=== PATIENT | female | born 1945 | race Caucasian/White ===

== ENCOUNTER → 2018-01-13 | Outpatient (CLI) | payer MEDICARE, BC | END | disposition home or self-care (01) | LOC: KCIC CT 10:19 | DX: R51 Headache (principal) | CPT/HCPCS: 70450 ==

== ENCOUNTER → 2018-04-14 | Outpatient (CLI) | payer MEDICARE, BC ==
--- NOTE | 2018-04-14 12:07 | CARD ---
MR#: [id number] Date of Study: 04/14/2018 Ordering Physician: JUAN CANDELARIO, Referring Physician: JUAN CANDELARIO Tech: Eve Carrillo RDCS APPROVED REPORT EXAM: Two-dimensional and M-mode echocardiogram with Doppler and color Doppler. Other Information Quality : Fair INDICATION Dyspnea on Exertion RISK FACTORS Obesity 2D DIMENSIONS RVDd2.8 (2.9-3.5cm)Left Atrium(2D)4.8 (1.6-4.0cm) IVSd1.0 (0.7-1.1cm)Aortic Root(2D)3.5 (2.0-3.7cm) LVDd6.5 (3.9-5.9cm)LVOT Diameter2.2 (1.8-2.4cm) PWd0.9 (0.7-1.1cm)LVDs4.7 (2.5-4.0cm) FS (%) 27.0 %SV110.5 ml LVEF(%)51.6 (>50%) Aortic Valve AoV Peak Pato.145.0cm/sAoV VTI29.5cm AO Peak GR.8.4mmHgLVOT Peak Pato.114.2cm/s AO Mean GR.4mmHgAVA (VMAX)3.10cm2 FAYE (VTI)3.70cm2 Mitral Valve MV E Liboslcn17.3cm/sMV DECEL UGCX462hb MV A Bvvtwdin53.5cm/sE/A Ratio0.9 Tricuspid Valve TR P. Gizndcpx881gc/sRAP CLFRHFAZ5laHb TR Peak Gr.27pePlFXXU58rrVy Pulmonary Vein S1 Pycnwxdg08.3cm/sD2 Ppiiujex11.6cm/s LEFT VENTRICLE The left ventricle is normal size. There is normal left ventricular wall thickness. Left ventricle sy stolic function is normal. The Ejection Fraction is 55-60%. There is normal LV segmental wall motion. Transmitral Doppler flow pattern is Grade I-abnormal relaxation pattern. RIGHT VENTRICLE The right ventricle is normal size. The right ventricular systolic function is normal. ATRIA The left atrium size is normal. The right atrium size is normal. The interatrial septum is intact wit h no evidence for an atrial septal defect or patent foramen ovale as noted on 2-D or Doppler imaging. AORTIC VALVE The aortic valve is calcified but opens well. Doppler and Color Flow revealed no significant aortic r egurgitation. There is no significant aortic valvular stenosis. MITRAL VALVE The mitral valve is calcified but opens well. There is no evidence of mitral valve prolapse. There is no mitral valve stenosis. Doppler and Color-flow revealed trace mitral regurgitation. TRICUSPID VALVE The tricuspid valve is normal in structure and function. Doppler and Color Flow revealed mild tricusp id regurgitation. The PA pressure was estimated at 42 mmHg. There is no tricuspid valve stenosis. PULMONIC VALVE The pulmonic valve is not well visualized. Doppler and Color Flow revealed trace to mild pulmonic patricia vular regurgitation. There is no pulmonic valvular stenosis. GREAT VESSELS The aortic root is normal in size. The ascending aorta is normal in size. The IVC is normal in size a nd collapses >50% with inspiration. PERICARDIAL EFFUSION There is no evidence of significant pericardial effusion. Critical Notification Critical Value: No <Conclusion> The left ventricle is normal size. Left ventricle systolic function is normal. The Ejection Fraction is 55-60%. There is no significant aortic valvular stenosis. Doppler and Color Flow revealed no significant aortic regurgitation. Doppler and Color-flow revealed trace mitral regurgitation. Doppler and Color Flow revealed mild tricuspid regurgitation. The PA pressure was estimated at 42 mmHg. Signed by : Roland Robles MD Electronically Approved : 04/14/2018 12:06:16
== END | disposition home or self-care (01) ==
LOC: ECHO 09:49
PROVIDERS: ATTEND Internal Medicine Cardiovascular Disease
DX: I08.1 Rheumatic disorders of both mitral and tricuspid valves (principal); E66.9 Obesity, unspecified
CPT/HCPCS: 93306; 96374

== ENCOUNTER → 2018-05-19 | Outpatient (CLI) | payer MEDICARE, BC ==
--- NOTE | 2018-05-19 12:20 | RAD ---
MR#: [id number] Date of Study: 05/19/2018 Ordering Physician: JUAN CANDELARIO, Referring Physician: JUAN CANDELARIO, Tech: TERELL Luke, RDMS, RTR APPROVED REPORT Bilateral Lower Extremity Venous Study for DVT Patient Location: OUT-PATIENT Indications post ablation Findings Mildly technically difficult study. Grayscale images of the common femoral, superficial and popliteal veins bilaterally demonstrate compressibility and normal spectral waveforms and color Doppler flow. The bilateral greater saphenous veins appear to be noncompressible consistent with recent ablation hi story. Below the knees there is spontaneous flow noted without any obvious evidence of thrombus. Critical Notification Critical Value: No <Conclusion> No evidence of DVT in the bilateral lower extremities with successful bilateral greater saphenous vei n ablations. Signed by : Rd Molina, Electronically Approved : 05/19/2018 12:19:23
== END | disposition home or self-care (01) ==
LOC: US 12:20
PROVIDERS: ATTEND Internal Medicine Cardiovascular Disease
DX: I87.2 Venous insufficiency (chronic) (peripheral) (principal)
CPT/HCPCS: 93970

== ENCOUNTER → 2018-06-01 | Outpatient (CLI) | payer MEDICARE, BC ==
--- NOTE | 2018-06-01 14:24 | CARD ---
MR#: [id number] Date of Study: 06/01/2018 Ordering Physician: JUAN MONTANA, Referring Physician: JUAN MONTANA, Tech: Millicent Parra RVT; Kirk Redmond LP APPROVED REPORT Patient StatusOUT-PATIENT Factory Worker: Millicent Parra RVT; Kirk Redmond LP Procedure(s) performed: Endovenous Venaseal ablation of the left lesser saphenous vein INDICATION FOR PROCEDURE The indication(s) include : Symptomatic Chronic Venous Insufficiency with Varicose Veins, lower extre mity pain and edema. PROCEDURE NARRATIVE After explaining the risks, benefits and alternative options, informed consent was obtained from saroj ent. Patient was brought to the procedure suite and duplex ultrasound was used to map out the insuffi cient saphenous vein. The access site was determined and marked on the overlying skin. The depth and diameter of the vein (s) to be treated was documented. The patient was placed prone on the procedure table and the leg was prepped and draped using sterile technique. Ultrasound guidance was again used to localize the access site. 1% lidocaine was injected into the sk in and subcutaneous tissues for local anesthesia. Using ultrasound guidance, access was obtained in t he saphenous vein with a 19-gauge thin-walled needle followed by introduction of a short guidewire. T he intraluminal location was confirmed with ultrasound and a 7 Latvian 7 cm sheath was inserted into t he vein. A 0.035 inch guidewire from the Venaseal kit was then introduced and positioned at the saphe nofemoral junction using ultrasound guidance. The 80 cm 7 Latvian introducer sheath/dilator was positi oned 5 cm from the saphenofemoral junction. The guidewire and dilator were removed and the remaining sheath was flushed with sterile saline, with the syringe remaining in place prior to the next steps. The Cyanoacrylate adhesive was loaded into a 3 cc syringe that was then attached to the 5F delivery c athter and loaded on to the Dispenser gun.The catheter was primed precisely and this 'assembly' was i ntroduced through the 7 Latvian sheath and positioned 5 cm caudal to the saphenopopliteal junction und er ultrasound guidance. While applying compression cephalad to the cathter tip with the ultrasound tr ansducer, 0.10 cc of the VenaSeal adhesive was delivered into the vein by pulling the trigger of the dispenser gun. The catheter was pulled back 1 cm and another 0.10 cc of the adhesive was delivered fo llowing which the catheter was pulled back 3 cm. Compression was applied over the vein for 3 minutes. The catheter tip position was confirmed again using the ultrasound, 0.10 cc Venaseal adhesive delive red, catheter pulled back 3 cm and compression applied for 30 seconds. These steps were repeated to treat the entire length of the incompetent vein. Following the last injection and compression sequence, the catheter and introducer sheath were pulled out from the access site. Hemostasis was achieved with manual compression and an adhesive bandage wa s applied to the incision. Ultrasound confirmed complete coaptation and closure of the treated segmen ts of the greater saphenous vein. Treatment time was approximately 7 minutes and the vein length carter brady was 25 cm. The drapes were removed and the patient cleaned and prepared for discharge. Patient tolerated the pro cedure well. There were no immediate complications. Postop ultrasound check scheduled for 48-72 hours and the patient was given written postop instructions. Signed by : Juan Montana, Electronically Approved : 06/01/2018 14:22:58
== END | disposition home or self-care (01) ==
LOC: VNUS 12:20
PROVIDERS: ATTEND Internal Medicine Cardiovascular Disease
DX: I83.812 Varicose veins of left lower extremity with pain (principal); I87.2 Venous insufficiency (chronic) (peripheral); Z88.0 Allergy status to penicillin
CPT/HCPCS: 36482

== ENCOUNTER → 2018-10-05 | Outpatient (CLI) | payer MEDICARE ==
[~2018-10-05] MED LIST: ALPR0.5T PO; ESCITALOPRAM OXA5 MG PO; FURO-69 PO; IOHEXOL 240 MG/ML 50ML VIAL. PO ONE; IOHEXOL 300 MG/ML 100ML VIAL. IV ONE; METO-239 PO; SIMV10TA3 PO
--- NOTE | 2018-10-05 13:43 | KCIC ---
PQRS Compliance statement: One or more of the following individualized dose reduction techniques were utilized for this examination: 1. Automated exposure control. 2. Adjustment of the mA and/or kV according to patient size. 3. Use of iterative reconstruction technique. Indication:Gross hematuria. Cirrhosis. Right flank pain. TECHNIQUE: CT abdomen and pelvis with IV contrast with multiplanar reformats. COMPARISON: None FINDINGS: Heart is normal in size. No pericardial or pleural effusion. Clear lung bases. Nodular surface of the liver is seen. Spleen is mildly enlarged measuring 17 cm without focal lesion. Main portal vein is patent. Status post cholecystectomy. Pancreas and adrenal glands demonstrate no nodularity. 7 mm obstructing stone is seen in the right proximal ureter causing moderate hydronephrosis. Punctate nonobstructing stone is seen in the right kidney. Most likely a subcentimeter simple cyst in the inferior pole of the right kidney. No enlarged retroperitoneal or pelvic adenopathy. No free pelvic fluid or ascites. No bowel obstruction. Sigmoid diverticulosis. Anteverted uterus. Urinary bladder is within normal limits. No pneumoperitoneum. No suspicious bony lesion. IMPRESSION: 1. Obstructing stone in the proximal right ureter. 2. Cirrhosis the portal venous hypertension. Electronically signed by: Dat Morales DO (10/05/2018 1:40 PM) [facility]
== END | disposition home or self-care (01) ==
LOC: KCIC CT 10:34
PROVIDERS: ATTEND Nurse Practitioner Family
DX: N20.0 Calculus of kidney (principal); K74.69 Other cirrhosis of liver; K76.6 Portal hypertension; K57.30 Diverticulosis of large intestine without perforation or abscess without bleeding; R16.1 Splenomegaly, not elsewhere classified; N13.39 Other hydronephrosis; I10 Essential (primary) hypertension; Z90.49 Acquired absence of other specified parts of digestive tract
CPT/HCPCS: 74177; 82565; Q9966; Q9967

== ENCOUNTER 2018-10-19 14:26 | Inpatient (IN) | payer MEDICARE ==
[~2018-10-19] VITALS: Ht 162.6 cm; Wt 128.1 kg
[~2018-10-19 14:26] MED LIST changes: -IOHEXOL 240 MG/ML 50ML VIAL. PO ONE; -IOHEXOL 300 MG/ML 100ML VIAL. IV ONE
[2018-10-19] MEDS ORDERED: LABETALOL 20 MG/4 ML DISP.SYRIN. IVP ONE (15:00)
[2018-10-19] MEDS ORDERED: ONDANSETRON PF 4 MG/2 ML VIAL. IV ONE ×2 (15:00→16:30)
[2018-10-19] MEDS ORDERED: fentaNYL PF VIAL 100 MCG/2 ML VIAL IV ONE (15:00)
[2018-10-19] MEDS ORDERED: cloNIDine HCL 0.1 MG TABLET PO ONE (15:00)
[2018-10-19] MEDS ORDERED: IV NORMAL SALINE 1000ML BAG 1,000 ML IV ONE (15:00)
[2018-10-19 15:35] LABS: BILIRUBIN,URINE NEGATIVE (NEG); COLOR,URINE YELLOW; NITRITE,URINE NEGATIVE (NEG); PROTEIN,URINE NEGATIVE (NEG-TRACE)
[2018-10-19 15:39] LABS: BASO # 0.1 x10^3/uL (0.0-0.2); BASO % 1 % (0-3); EOS # 0.4 x10^3/uL (0.0-0.7); EOS % 7 % (0-3); HEMATOCRIT 37.5 % (36.0-47.0); HEMOGLOBIN 12.1 g/dL (12.0-15.5); LYMPH # 1.2 x10^3/uL (1.0-4.8); LYMPH % 22 % (24-48); MEAN CORPUSCULAR HEMOGLOBIN 25 pg (25-35); MEAN CORPUSCULAR HGB CONC 32 g/dL (31-37); MEAN CORPUSCULAR VOLUME 78 fL (79-100); MONO # 0.6 x10^3/uL (0.0-1.1); MONO % 11 % (0-9); NEUT # 3.3 x10^3uL (1.8-7.7); NEUT % 59 % (31-73); PLATELET COUNT 120 x10^3/uL (140-400); RED BLOOD COUNT 4.81 x10^6/uL (3.50-5.40); RED CELL DISTRIBUTION WIDTH 17.5 % (11.5-14.5); WHITE BLOOD COUNT 5.6 x10^3/uL (4.0-11.0)
[2018-10-19 15:43] LABS: CLARITY,URINE CLOUDY
[2018-10-19 15:50] LABS: PROTHROMBIN TIME PATIENT 14.8 SEC (11.7-14.0)
[2018-10-19 15:50] LABS: BACTERIA,URINE 0 /HPF (0-FEW); RBC,URINE TNTC /HPF (0-2); SQUAMOUS EPITHELIAL CELL,UR FEW /LPF; WBC,URINE OCC /HPF (0-4)
[2018-10-19 16:00] LABS: CALCIUM 10.2 mg/dL (8.5-10.1); GFR 54.7; POTASSIUM 4.2 mmol/L (3.5-5.1)
--- NOTE | 2018-10-19 16:01 | RAD ---
CT ABDOMEN PELVIS WO CONTRAST Indication: right flank pain hx of kidney stones
previous Exposure: One or more of the following individualized dose reduction techniques were utilized for this examination: 1. Automated exposure control 2. Adjustment of the mA and/or kV according to patient size 3. Use of iterative reconstruction technique. Comparison: October 05, 2018. Technique: No intravenous contrast given. No oral contrast per request. Findings: Evaluation of solid viscera, bowel and vasculature is compromised by the noncontrast technique. Mild atelectasis or infiltrate in the lung bases. Coronary artery calcification. The liver demonstrates a nodular surface morphology, as was seen previously. Spleen is again enlarged, measuring about 17 cm. Pancreas unremarkable. No evidence of adrenal mass. Moderate right hydronephrosis and proximal ureteric dilatation, with a obstructing calculus in the proximal right ureter which measures 1 cm long axis. This appears similar as prior study although the stone measures slightly larger, compared with 7 mm previously. Possibly this is due to slight rotation of a calculus. There is dilatation of the ureter distal to this calculus is well, with another calculus in the distal ureter measuring 5 mm also seen on prior study. Tiny nonobstructing intrarenal calculus on the right and on the left. No left-sided hydronephrosis. Tiny subcentimeter hypodense lesion lower pole right kidney appears stable, too small to characterize but may represent a cyst. Gallbladder is surgically absent. Aorta is tortuous with mild calcification, no evidence of aneurysm. No evidence of significant lymph node enlargement. No evidence of bowel obstruction. Colonic diverticulosis without evidence of acute colitis. There may be very mild free pelvic fluid. Urinary bladder is not adequately distended for evaluation. Small fat-containing umbilical hernia at the anterior abdominal wall. Degenerative spondylosis of the spine IMPRESSION: 1. Moderately obstructive calculi in the proximal and distal right ureter, are again seen. The proximal ureteric calculus measures slightly larger but that may just be due to technical difference. Right hydronephrosis appears similar. 2. Splenomegaly and cirrhotic liver morphology is again seen. 3. There may be very mild free pelvic fluid. Electronically signed by: Eliseo Caba MD (10/19/2018 3:58 PM) [facility]
[2018-10-19 16:05] LABS: ALBUMIN 3.1 g/dL (3.4-5.0); ALBUMIN/GLOBULIN RATIO 0.7 (1.0-1.7); MAGNESIUM 2.1 mg/dL (1.8-2.4); TOTAL BILIRUBIN 0.9 mg/dL (0.2-1.0); TOTAL PROTEIN 7.4 g/dL (6.4-8.2)
[2018-10-19 16:14] LABS: CREATINE KINASE 52 U/L (26-192)
[2018-10-19] MEDS ORDERED: KETOROLAC 30 MG/ML VIAL. IV ONE (16:30)
--- NOTE | 2018-10-19 16:36 | PHYS DOC ---
Past Medical History Past Medical History: Hypertension, RI Additional Past Medical Histor: Stage 4 non-ETOH Cirrohsis, GERD Past Surgical History: Cholecystectomy, Knee Replacement Additional Past Surgical Histo: Right Knee 2006, Additional Information: 1993 quit Alcohol Use: None Drug Use: None Adult General Chief Complaint Chief Complaint: FLANK PAIN [facility] HPI Patient is a 73 year old female presented to the ER FOR EVALUATION OF RIGHT FLANK PAIN. Patient has had flank pain for more than 3 weeks[address] Patient had a CT scan done two weeks ago, found to have kidney stones on left ureter. Patient continues to have pain despite of taking medication at home. Patient denied any fever. No nausea or vomiting. Review of Systems Review of Systems Constitutional: Denies fever or chills [] Eyes: Denies change in visual acuity, redness, or eye pain [] HENT: Denies nasal congestion or sore throat [] Respiratory: Denies cough or shortness of breath [] Cardiovascular: No additional information not addressed in HPI [] GI: Positive for abdominal pain NO nausea, vomiting, bloody stools or diarrhea [] : Denies dysuria or hematuria [] Musculoskeletal: Denies back pain or joint pain [] Integument: Denies rash or skin lesions [] Neurologic: Denies headache, focal weakness or sensory changes [] Endocrine: Denies polyuria or polydipsia [] All other systems were reviewed and found to be within normal limits, except as documented in this note. Current Medications Current Medications Current Medications Medications (Trade) Dose Ordered Sig/Susanna Start Time Stop Time Status Last Admin Dose Admin Clonidine HCl (Catapres) 0.1 mg 1X ONCE 10/19/18 15:00 10/19/18 15:01 UNV Fentanyl Citrate (Fentanyl 2ml Vial) 50 mcg 1X ONCE 10/19/18 15:00 10/19/18 15:01 UNV Ketorolac Tromethamine (Toradol 30mg Vial) 30 mg 1X ONCE 10/19/18 16:30 10/19/18 16:31 DC 10/19/18 17:05 30 MG Labetalol HCl (Normodyne Iv Push) 10 mg 1X ONCE 10/19/18 15:00 10/19/18 15:01 UNV Ondansetron HCl (Zofran) 4 mg 1X ONCE 10/19/18 16:30 10/19/18 16:31 DC 10/19/18 17:04 4 MG Sodium Chloride 1,000 ml @ 1,000 mls/hr 1X ONCE 10/19/18 15:00 10/19/18 15:59 UNV Allergies Allergies Allergies Coded Allergies Type Severity Reaction Last Updated Verified Penicillins Allergy Intermediate 04/21/18 Yes Physical Exam Physical Exam Constitutional: Well developed, well nourished, no acute distress, non-toxic appearance. [] HENT: Normocephalic, atraumatic, bilateral external ears normal, oropharynx moist, no oral exudates, nose normal. [] Eyes: PERRLA, EOMI, conjunctiva normal, no discharge. [] Neck: Normal range of motion, no tenderness, supple, no stridor. [] Cardiovascular:Heart rate regular rhythm, no murmur [] Lungs & Thorax: Bilateral breath sounds clear to auscultation [] Abdomen: Bowel sounds normal, soft, right CVA tenderness, RIGHT LOWER QUADRANT ABDOMEN, no masses, no pulsatile masses. [] Skin: Warm, dry, no erythema, no rash. [] Back: No tenderness, no CVA tenderness. [] Extremities: No tenderness, no cyanosis, no clubbing, ROM intact, no edema. [] Neurologic: Alert and oriented X 3, normal motor function, normal sensory function, no focal deficits noted. [] Psychologic: Affect normal, judgement normal, mood normal. [] Current Patient Data Vital Signs Vital Signs Date Time Temp Pulse Resp B/P (MAP) Pulse Ox O2 Delivery O2 Flow Rate FiO2 10/19/18 14:52 98.2 57 20 171/74 (106) 98 Room Air 98.2 Lab Values Laboratory Tests Test 10/19/18 15:20 10/19/18 15:32 Urine Collection Type Void Urine Color Yellow Urine Clarity Cloudy Urine pH 7.0 Urine Specific [place] 1.015 Urine Protein Negative mg/dL (NEG-TRACE) Urine Glucose (UA) Negative mg/dL (NEG) Urine Ketones (Stick) Negative mg/dL (NEG) Urine Blood Large (NEG) Urine Nitrite Negative (NEG) Urine Bilirubin Negative (NEG) Urine Urobilinogen Dipstick 1.0 mg/dL (0.2 mg/dL) Urine Leukocyte Esterase Small (NEG) Urine RBC Tntc /HPF (0-2) Urine WBC Occ /HPF (0-4) Urine Squamous Epithelial Cells Few /LPF Urine Bacteria 0 /HPF (0-FEW) White Blood Count 5.6 x10^3/uL (4.0-11.0) Red Blood Count 4.81 x10^6/uL (3.50-5.40) Hemoglobin 12.1 g/dL (12.0-15.5) Hematocrit 37.5 % (36.0-47.0) Mean Corpuscular Volume 78 fL (79-100) L Mean Corpuscular Hemoglobin 25 pg (25-35) Mean Corpuscular Hemoglobin Concent 32 g/dL (31-37) Red Cell Distribution Width 17.5 % (11.5-14.5) H Platelet Count 120 x10^3/uL (140-400) L Neutrophils (%) (Auto) 59 % (31-73) Lymphocytes (%) (Auto) 22 % (24-48) L Monocytes (%) (Auto) 11 % (0-9) H Eosinophils (%) (Auto) 7 % (0-3) H Basophils (%) (Auto) 1 % (0-3) Neutrophils # (Auto) 3.3 x10^3uL (1.8-7.7) Lymphocytes # (Auto) 1.2 x10^3/uL (1.0-4.8) Monocytes # (Auto) 0.6 x10^3/uL (0.0-1.1) Eosinophils # (Auto) 0.4 x10^3/uL (0.0-0.7) Basophils # (Auto) 0.1 x10^3/uL (0.0-0.2) Prothrombin Time 14.8 SEC (11.7-14.0) H Prothrombin Time INR 1.2 (0.8-1.1) H PTT 28 SEC (24-38) Sodium Level 141 mmol/L (136-145) Potassium Level 4.2 mmol/L (3.5-5.1) Chloride Level 106 mmol/L (98-107) Carbon Dioxide Level 25 mmol/L (21-32) Anion Gap 10 (6-14) Blood Urea Nitrogen 14 mg/dL (7-20) Creatinine 1.0 mg/dL (0.6-1.0) Estimated GFR (Cockcroft-Gault) 54.7 BUN/Creatinine Ratio 14 (6-20) Glucose Level 106 mg/dL (70-99) H Calcium Level 10.2 mg/dL (8.5-10.1) H Magnesium Level 2.1 mg/dL (1.8-2.4) Total Bilirubin 0.9 mg/dL (0.2-1.0) Aspartate Amino Transferase (AST) 29 U/L (15-37) Alanine Aminotransferase (ALT) 17 U/L (14-59) Alkaline Phosphatase 106 U/L (46-116) Creatine Kinase 52 U/L (26-192) Creatine Kinase MB (Mass) 0.9 ng/mL (0.0-3.6) Creatine Kinase MB Relative Index % (0-4) Troponin I Quantitative < 0.017 ng/mL (0.000-0.055) Total Protein 7.4 g/dL (6.4-8.2) Albumin 3.1 g/dL (3.4-5.0) L Albumin/Globulin Ratio 0.7 (1.0-1.7) L Lipase 188 U/L (73-393) Laboratory Tests 10/19/18 15:32 Laboratory Tests 10/19/18 15:32 EKG EKG [] Radiology/Procedures Radiology/Procedures [][facility] [address] [place], [place] [id number] IMAGING REPORT Signed PATIENT: MAIRA JACKSON ACCOUNT: [id number] : 1945 LOCATION: ER AGE: 73 SEX: F EXAM STATUS: REG ER ORD. PHYSICIAN: DOROTHEA RIDER APRN REASON: right flank pain hx of kidney stones PROCEDURE: CT ABDOMEN PELVIS WO CONTRAST CT ABDOMEN PELVIS WO CONTRAST Indication: right flank pain hx of kidney stones
previous Exposure: One or more of the following individualized dose reduction techniques were utilized for this examination: 1. Automated exposure control 2. Adjustment of the mA and/or kV according to patient size 3. Use of iterative reconstruction technique. Comparison: October 05, 2018. Technique: No intravenous contrast given. No oral contrast per request. Findings: Evaluation of solid viscera, bowel and vasculature is compromised by the noncontrast technique. Mild atelectasis or infiltrate in the lung bases. Coronary artery calcification. The liver demonstrates a nodular surface morphology, as was seen previously. Spleen is again enlarged, measuring about 17 cm. Pancreas unremarkable. No evidence of adrenal mass. Moderate right hydronephrosis and proximal ureteric dilatation, with a obstructing calculus in the proximal right ureter which measures 1 cm long axis. This appears similar as prior study although the stone measures slightly larger, compared with 7 mm previously. Possibly this is due to slight rotation of a calculus. There is dilatation of the ureter distal to this calculus is well, with another calculus in the distal ureter measuring 5 mm also seen on prior study. Tiny nonobstructing intrarenal calculus on the right and on the left. No left-sided hydronephrosis. Tiny subcentimeter hypodense lesion lower pole right kidney appears stable, too small to characterize but may represent a cyst. Gallbladder is surgically absent. Aorta is tortuous with mild calcification, no evidence of aneurysm. No evidence of significant lymph node enlargement. No evidence of bowel obstruction. Colonic diverticulosis without evidence of acute colitis. There may be very mild free pelvic fluid. Urinary bladder is not adequately distended for evaluation. Small fat-containing umbilical hernia at the anterior abdominal wall. Degenerative spondylosis of the spine IMPRESSION: 1. Moderately obstructive calculi in the proximal and distal right ureter, are again seen. The proximal ureteric calculus measures slightly larger but that may just be due to technical difference. Right hydronephrosis appears similar. 2. Splenomegaly and cirrhotic liver morphology is again seen. 3. There may be very mild free pelvic fluid. Electronically signed by: Eliseo Caba MD (10/19/2018 3:58 PM) [facility] DICTATED and SIGNED BY: ELISEO CABA MD DATE: 10/19/18 1558 Course & Med Decision Making Course & Med Decision Making Pertinent Labs and Imaging studies reviewed. (See chart for details) [] Dragon Disclaimer Dragon Disclaimer This electronic medical record was generated, in whole or in part, using a voice recognition dictation system. Departure Departure Impression: Primary Impression: Kidney stone on right side Disposition: ADMITTED INPATIENT Admitting Physician: Tabitha Ruiz Condition: STABLE Referrals: TABITHA RUIZ MD (PCP) BEULAH BABIN DO Oct 19, 2018 16:36
[2018-10-19] MEDS ORDERED: MORPHINE SULFATE 2 MG/ML VIAL. IV PRN (17:45)
[2018-10-19] MEDS ORDERED: ONDANSETRON PF 4 MG/2 ML VIAL. IV PRN (17:45)
[2018-10-19 19:18] VITALS: BP 97/48
--- NOTE | 2018-10-19 19:18 | NUR ---
The patient, MAIRA JACKSON, 73 y/o, F admitted by TABITHA RUIZ MD, was given written information regarding hospital policies, unit procedures and contact persons. Patient was transported from ED to room 410 via wheelchair. Upon admission RN performed a head to toe assessment, VSS, afebrile, and rating pain 0/10. Bed is in lowest locked position and call light is within reach. Valuables were checked and left in the room with the patient. RN will continue to monitor patient closely.
[2018-10-19] MEDS: IV NORMAL SALINE 1000ML BAG 1,000 ML IV SCH (20:02)
[2018-10-19 23:00] VITALS: BP 102/37
[2018-10-20] VITALS (13 sets, daily range): BP systolic 102–145; BP diastolic 46–73
[2018-10-20] MEDS: IV NORMAL SALINE 1000ML BAG 1,000 ML IV SCH (07:59)
--- NOTE | 2018-10-20 08:51 | PDOC ---
GENERAL General: see dictated H&P. VITAL SIGNS Vital Signs: Vital Signs Date Time Temp Pulse Resp B/P (MAP) Pulse Ox O2 Delivery O2 Flow Rate FiO2 10/20/18 03:00 98.0 55 18 102/46 (64) 95 Room Air 98.0 I & O I & O Intake and Output 10/20/18 07:00 Intake Total 900 ml Output Total 100 ml Balance 800 ml Intake Oral 900 ml Output Urine Total 100 ml ALLERGIES Allergies: Allergies Coded Allergies Type Severity Reaction Last Updated Verified Penicillins Allergy Intermediate 04/21/18 Yes MEDS Medications: Current Medications Medications (Trade) Dose Ordered Sig/Susanna Start Time Stop Time Status Last Admin Dose Admin Clonidine HCl (Catapres) 0.1 mg 1X ONCE 10/19/18 15:00 10/19/18 15:01 UNV Fentanyl Citrate (Fentanyl 2ml Vial) 50 mcg 1X ONCE 10/19/18 15:00 10/19/18 15:01 UNV Ketorolac Tromethamine (Toradol 30mg Vial) 30 mg 1X ONCE 10/19/18 16:30 10/19/18 16:31 DC 10/19/18 17:05 30 MG Labetalol HCl (Normodyne Iv Push) 10 mg 1X ONCE 10/19/18 15:00 10/19/18 15:01 UNV Morphine Sulfate (Morphine Sulfate) 2 mg PRN Q2HR PRN 10/19/18 17:45 10/20/18 17:44 Ondansetron HCl (Zofran) 4 mg PRN Q8HRS PRN 10/19/18 17:45 10/20/18 17:44 Sodium Chloride 1,000 ml @ 75 mls/hr [id number] 10/19/18 17:40 10/20/18 17:39 10/20/18 07:59 75 MLS/HR LAB Lab: Laboratory Tests Test 10/19/18 15:20 10/19/18 15:32 Urine Collection Type Void Urine Color Yellow Urine Clarity Cloudy Urine pH 7.0 Urine Specific [place] 1.015 Urine Protein Negative mg/dL (NEG-TRACE) Urine Glucose (UA) Negative mg/dL (NEG) Urine Ketones (Stick) Negative mg/dL (NEG) Urine Blood Large (NEG) Urine Nitrite Negative (NEG) Urine Bilirubin Negative (NEG) Urine Urobilinogen Dipstick 1.0 mg/dL (0.2 mg/dL) Urine Leukocyte Esterase Small (NEG) Urine RBC Tntc /HPF (0-2) Urine WBC Occ /HPF (0-4) Urine Squamous Epithelial Cells Few /LPF Urine Bacteria 0 /HPF (0-FEW) White Blood Count 5.6 x10^3/uL (4.0-11.0) Red Blood Count 4.81 x10^6/uL (3.50-5.40) Hemoglobin 12.1 g/dL (12.0-15.5) Hematocrit 37.5 % (36.0-47.0) Mean Corpuscular Volume 78 fL (79-100) Mean Corpuscular Hemoglobin 25 pg (25-35) Mean Corpuscular Hemoglobin Concent 32 g/dL (31-37) Red Cell Distribution Width 17.5 % (11.5-14.5) Platelet Count 120 x10^3/uL (140-400) Neutrophils (%) (Auto) 59 % (31-73) Lymphocytes (%) (Auto) 22 % (24-48) Monocytes (%) (Auto) 11 % (0-9) Eosinophils (%) (Auto) 7 % (0-3) Basophils (%) (Auto) 1 % (0-3) Neutrophils # (Auto) 3.3 x10^3uL (1.8-7.7) Lymphocytes # (Auto) 1.2 x10^3/uL (1.0-4.8) Monocytes # (Auto) 0.6 x10^3/uL (0.0-1.1) Eosinophils # (Auto) 0.4 x10^3/uL (0.0-0.7) Basophils # (Auto) 0.1 x10^3/uL (0.0-0.2) Prothrombin Time 14.8 SEC (11.7-14.0) Prothromb Time International Ratio 1.2 (0.8-1.1) Activated Partial Thromboplast Time 28 SEC (24-38) Sodium Level 141 mmol/L (136-145) Potassium Level 4.2 mmol/L (3.5-5.1) Chloride Level 106 mmol/L (98-107) Carbon Dioxide Level 25 mmol/L (21-32) Anion Gap 10 (6-14) Blood Urea Nitrogen 14 mg/dL (7-20) Creatinine 1.0 mg/dL (0.6-1.0) Estimated GFR (Cockcroft-Gault) 54.7 BUN/Creatinine Ratio 14 (6-20) Glucose Level 106 mg/dL (70-99) Calcium Level 10.2 mg/dL (8.5-10.1) Magnesium Level 2.1 mg/dL (1.8-2.4) Total Bilirubin 0.9 mg/dL (0.2-1.0) Aspartate Amino Transf (AST/SGOT) 29 U/L (15-37) Alanine Aminotransferase (ALT/SGPT) 17 U/L (14-59) Alkaline Phosphatase 106 U/L (46-116) Creatine Kinase 52 U/L (26-192) Creatine Kinase MB (Mass) 0.9 ng/mL (0.0-3.6) Creatine Kinase MB Relative Index % (0-4) Troponin I Quantitative < 0.017 ng/mL (0.000-0.055) Total Protein 7.4 g/dL (6.4-8.2) Albumin 3.1 g/dL (3.4-5.0) Albumin/Globulin Ratio 0.7 (1.0-1.7) Lipase 188 U/L (73-393) TABITHA RUIZ MD Oct 20, 2018 08:51
[2018-10-20] MEDS: ALPRAZolam 0.5 MG TABLET PO SCH (09:00)
[2018-10-20] MEDS: FUROSEMIDE 20 MG TABLET PO SCH (09:00)
[2018-10-20] MEDS: METOPROLOL SUCC 24HR ER 25 MG TAB.ER.24H. PO SCH (09:00)
[2018-10-20] MEDS: CITALOPRAM 10 MG TABLET. PO SCH (09:00)
--- NOTE | 2018-10-20 09:15 | NUR ---
SW following. Discussed with RN, pt is from home with , possible surgery today. SW awaiting PT/OT recommendations for discharge planning.
--- NOTE | 2018-10-20 09:17 | HP ---
ADMIT DATE: 10/19/2018 CHIEF COMPLAINT AND HISTORY OF PRESENT ILLNESS: This 73-year-old white female is well known to me from followup in the office. The patient presented to the Emergency Room with right flank pain. She has been having problems with right renal colic for approximately 3 weeks now, it got worse on the evening of admission. She was found to have hematuria as well as 2 kidney stones on the right side on imaging CT mills in the Emergency Room. Specifically, she was found to have moderately obstructive calculi in the proximal and distal right ureters were seen once again, it was felt that the proximal calculus measured slightly larger than seen prior, probably due to technical difficulties and the right hydronephrosis was stable. The one in the proximal right ureter, they felt was up to 1 cm in diameter; and in the distal ureter, 5 mm in diameter. She was admitted for pain control and urological evaluation. PAST MEDICAL HISTORY: Remarkable for atherosclerotic heart disease with prior PR, hypertension, nonalcoholic cirrhosis, GERD. She had a prior cholecystectomy, knee replacement. MEDICATIONS: Brought with the patient, listed on the computer, have been addressed. ALLERGIES: She is allergic to PENICILLIN. SOCIAL HISTORY: She is a former smoker, quitting some 25 years ago. Does not use alcohol or drugs. , lives at home with her . FAMILY HISTORY: Noncontributory. REVIEW OF SYSTEMS: Remarkable for the right flank pain, which intermittently improves and she can become somewhat nauseated with this when the pain is increased. PHYSICAL EXAMINATION: GENERAL: She is a well-developed, well-nourished white female, in no acute distress. VITAL SIGNS: Stable. She is afebrile. HEAD, EYES, EARS, NOSE AND THROAT: Remarkable for glasses. NECK: Supple without adenopathy or thyromegaly. CHEST: Clear to auscultation and percussion. HEART: Regular rate and rhythm without S3, S4, or murmur. ABDOMEN: Soft, nontender, without hepatosplenomegaly or masses. She does have right CVA tenderness present on exam. EXTREMITIES: Without cyanosis, clubbing, edema. NEUROLOGIC: She is intact. LABORATORY DATA: Initial labs are remarkable for hemoglobin 12.1; platelet count of 120,000; white count is normal at 5600. Chemistries are unremarkable with glucose of 106 and a calcium of 10.2, albumin of 3.1. Troponin x 1 is negative. INR is 1.2. Urinalysis shows too numerous to count red blood cells. IMPRESSION: 1. Right renal colic with intractable pain as an outpatient. 2. Other problems listed above. PLAN: The patient has been admitted. IV fluids are ongoing, pain medicines will be as needed. Urological consultation has been undertaken. She is n.p.o. at this point in time for possible urological procedures today. TABITHA RUIZ MD DR: EDGAR/larry JOB#: [id number] / [id number]
--- NOTE | 2018-10-20 10:27 | PDOC2 ---
JEFF NAYLOR Karon SHIN 10/20/18 1027: UROLOGY CONSULT Date of Consult Date of Consult DATE: 10/20/18 TIME: 10:19 Reason for Consult Reason for Consult: Kidney stones on the right Identification/Chief Complaint Chief Complaint Kidney stones on the right Source Source: Chart review, Patient History of Present Illness Reason for Visit: Patient is a 73 year old female with a history of kidney stones on the right. She had seen Dr. Walker a week or so ago for the same problem( 10/11). At that time her symptoms were under control and they had opted for a more conservative approach to include strainer, pain control and to return in two weeks for re- assessment. She was doing well until last night when the pain became very intense and so she presented to the ER for treatment. The pain was on the right lower back/flank area and was 10/10 when she came in. Currently it is 5/10 with medication but it still hurts enough that she is now open to having a surgical procedure done for this. She denies dysuria, hematuria, nausea or vomiting, but she does not want to eat either. Past Medical History Cardiovascular: HTN, Other (Remarkable for atherosclerotic heart disease ) Renal/: Other (Kidney stones; had another 1 two years ago that passed on its own. ) Current Problem List Problems: (1) Kidney stone on right side Current Medications Current Medications Current Medications Alprazolam (Xanax) 0.5 mg DAILY PO ; Start 10/20/18 at 09:00 Citalopram Hydrobromide (CeleXA) 10 mg DAILY PO ; Start 10/20/18 at 09:00 Clonidine HCl (Catapres) 0.1 mg 1X ONCE PO ; Start 10/19/18 at 15:00; Stop at 15:01; Status UNV Fentanyl Citrate (Fentanyl 2ml Vial) 50 mcg 1X ONCE IV ; Start 10/19/18 at 15:00 ; Stop 10/19/18 at 15:01; Status UNV Furosemide (Lasix) 20 mg DAILY PO ; Start 10/20/18 at 09:00 Ketorolac Tromethamine (Toradol 30mg Vial) 30 mg 1X ONCE IV Last administered on 10/19/18at 17:05; Start 10/19/18 at 16:30; Stop 10/19/18 at 16:31; Status DC Labetalol HCl (Normodyne Iv Push) 10 mg 1X ONCE IVP ; Start 10/19/18 at 15:00; Stop 10/19/18 at 15:01; Status UNV Metoprolol Succinate (Toprol Xl) 25 mg DAILY PO ; Start 10/20/18 at 09:00 Morphine Sulfate (Morphine Sulfate) 2 mg PRN Q2HR PRN IV PAIN; Start 10/19/18 at 17:45; Stop 10/20/18 at 17:44 Ondansetron HCl (Zofran) 4 mg 1X ONCE IV ; Start 10/19/18 at 15:00; Stop at 15:01; Status UNV Ondansetron HCl (Zofran) 4 mg 1X ONCE IV Last administered on 10/19/18at 17:04; Start 10/19/18 at 16:30; Stop 10/19/18 at 16:31; Status DC Ondansetron HCl (Zofran) 4 mg PRN Q8HRS PRN IV NAUSEA/VOMITING; Start 10/19/18 at 17:45; Stop 10/20/18 at 17:44 Simvastatin (Zocor) 10 mg QHS PO ; Start 10/20/18 at 21:00 Sodium Chloride 1,000 ml @ 75 mls/hr [id number] IV Last administered on 10/20/18at 07:59; Start 10/19/18 at 17:40; Stop 10/20/18 at 17:39 Sodium Chloride 1,000 ml @ 1,000 mls/hr 1X ONCE IV ; Start 10/19/18 at 15:00; Stop 10/19/18 at 15:59; Status UNV Allergies Allergies: Coded Allergies: Penicillins (Verified Allergy, Intermediate, 04/21/18) ROS Review Of Systems: CONSTITUTIONAL: No fever or chills EYES: No recent changes SKIN: No rash or itching CARDIOVASCULAR: No chest pain, syncope, palpitations, or edema RESPIRATORY: No SOB or cough GASTROINTESTINAL: No nausea, vomiting or abdominal pain NEUROLOGICAL: No headaches or weakness ENDOCRINE: No cold or heat intolerance GENITOURINARY: No urgency or frequency of urination, no hematuria MUSCULOSKELETAL: + right sided flank/ back pain, ok otherwise. LYMPHATICS: No enlarged lymph nodes PSYCHIATRIC: No anxiety or depression Physical Exam Physical Exam: General: Pleasant, no acute distress, well groomed Eyes: conjunctiva anicteric, eyes full range of motion ENT: moist oral mucosa, normal dentition Neck: Trachea midline, no masses Back: + CVA pain on the right, non tender on the left Respiratory: unlabored breathing, not using accessory muscles, Abdomen: nontender, soft, obese nondistended, no hepatosplenomegaly, no masses Skin: no rashes or skin lesions on visualized skin Psych: normal mood, affect. Alert and oriented x 3. Vitals VITALS Vital Signs Date Time Temp Pulse Resp B/P (MAP) Pulse Ox O2 Delivery O2 Flow Rate FiO2 10/20/18 08:00 Room Air 10/20/18 07:00 98.2 50 18 118/73 (88) 96 98.2 Labs Labs Laboratory Tests Test 10/19/18 15:20 10/19/18 15:32 Urine Collection Type Void Urine Color Yellow Urine Clarity Cloudy Urine pH 7.0 Urine Specific [place] 1.015 Urine Protein Negative mg/dL (NEG-TRACE) Urine Glucose (UA) Negative mg/dL (NEG) Urine Ketones (Stick) Negative mg/dL (NEG) Urine Blood Large (NEG) Urine Nitrite Negative (NEG) Urine Bilirubin Negative (NEG) Urine Urobilinogen Dipstick 1.0 mg/dL (0.2 mg/dL) Urine Leukocyte Esterase Small (NEG) Urine RBC Tntc /HPF (0-2) Urine WBC Occ /HPF (0-4) Urine Squamous Epithelial Cells Few /LPF Urine Bacteria 0 /HPF (0-FEW) White Blood Count 5.6 x10^3/uL (4.0-11.0) Red Blood Count 4.81 x10^6/uL (3.50-5.40) Hemoglobin 12.1 g/dL (12.0-15.5) Hematocrit 37.5 % (36.0-47.0) Mean Corpuscular Volume 78 fL (79-100) Mean Corpuscular Hemoglobin 25 pg (25-35) Mean Corpuscular Hemoglobin Concent 32 g/dL (31-37) Red Cell Distribution Width 17.5 % (11.5-14.5) Platelet Count 120 x10^3/uL (140-400) Neutrophils (%) (Auto) 59 % (31-73) Lymphocytes (%) (Auto) 22 % (24-48) Monocytes (%) (Auto) 11 % (0-9) Eosinophils (%) (Auto) 7 % (0-3) Basophils (%) (Auto) 1 % (0-3) Neutrophils # (Auto) 3.3 x10^3uL (1.8-7.7) Lymphocytes # (Auto) 1.2 x10^3/uL (1.0-4.8) Monocytes # (Auto) 0.6 x10^3/uL (0.0-1.1) Eosinophils # (Auto) 0.4 x10^3/uL (0.0-0.7) Basophils # (Auto) 0.1 x10^3/uL (0.0-0.2) Prothrombin Time 14.8 SEC (11.7-14.0) Prothromb Time International Ratio 1.2 (0.8-1.1) Activated Partial Thromboplast Time 28 SEC (24-38) Sodium Level 141 mmol/L (136-145) Potassium Level 4.2 mmol/L (3.5-5.1) Chloride Level 106 mmol/L (98-107) Carbon Dioxide Level 25 mmol/L (21-32) Anion Gap 10 (6-14) Blood Urea Nitrogen 14 mg/dL (7-20) Creatinine 1.0 mg/dL (0.6-1.0) Estimated GFR (Cockcroft-Gault) 54.7 BUN/Creatinine Ratio 14 (6-20) Glucose Level 106 mg/dL (70-99) Calcium Level 10.2 mg/dL (8.5-10.1) Magnesium Level 2.1 mg/dL (1.8-2.4) Total Bilirubin 0.9 mg/dL (0.2-1.0) Aspartate Amino Transf (AST/SGOT) 29 U/L (15-37) Alanine Aminotransferase (ALT/SGPT) 17 U/L (14-59) Alkaline Phosphatase 106 U/L (46-116) Creatine Kinase 52 U/L (26-192) Creatine Kinase MB (Mass) 0.9 ng/mL (0.0-3.6) Creatine Kinase MB Relative Index % (0-4) Troponin I Quantitative < 0.017 ng/mL (0.000-0.055) Total Protein 7.4 g/dL (6.4-8.2) Albumin 3.1 g/dL (3.4-5.0) Albumin/Globulin Ratio 0.7 (1.0-1.7) Lipase 188 U/L (73-393) Laboratory Tests Test 10/19/18 15:20 10/19/18 15:32 Urine Collection Type Void Urine Color Yellow Urine Clarity Cloudy Urine pH 7.0 Urine Specific [place] 1.015 Urine Protein Negative mg/dL (NEG-TRACE) Urine Glucose (UA) Negative mg/dL (NEG) Urine Ketones (Stick) Negative mg/dL (NEG) Urine Blood Large (NEG) Urine Nitrite Negative (NEG) Urine Bilirubin Negative (NEG) Urine Urobilinogen Dipstick 1.0 mg/dL (0.2 mg/dL) Urine Leukocyte Esterase Small (NEG) Urine RBC Tntc /HPF (0-2) Urine WBC Occ /HPF (0-4) Urine Squamous Epithelial Cells Few /LPF Urine Bacteria 0 /HPF (0-FEW) White Blood Count 5.6 x10^3/uL (4.0-11.0) Red Blood Count 4.81 x10^6/uL (3.50-5.40) Hemoglobin 12.1 g/dL (12.0-15.5) Hematocrit 37.5 % (36.0-47.0) Mean Corpuscular Volume 78 fL (79-100) Mean Corpuscular Hemoglobin 25 pg (25-35) Mean Corpuscular Hemoglobin Concent 32 g/dL (31-37) Red Cell Distribution Width 17.5 % (11.5-14.5) Platelet Count 120 x10^3/uL (140-400) Neutrophils (%) (Auto) 59 % (31-73) Lymphocytes (%) (Auto) 22 % (24-48) Monocytes (%) (Auto) 11 % (0-9) Eosinophils (%) (Auto) 7 % (0-3) Basophils (%) (Auto) 1 % (0-3) Neutrophils # (Auto) 3.3 x10^3uL (1.8-7.7) Lymphocytes # (Auto) 1.2 x10^3/uL (1.0-4.8) Monocytes # (Auto) 0.6 x10^3/uL (0.0-1.1) Eosinophils # (Auto) 0.4 x10^3/uL (0.0-0.7) Basophils # (Auto) 0.1 x10^3/uL (0.0-0.2) Prothrombin Time 14.8 SEC (11.7-14.0) Prothromb Time International Ratio 1.2 (0.8-1.1) Activated Partial Thromboplast Time 28 SEC (24-38) Sodium Level 141 mmol/L (136-145) Potassium Level 4.2 mmol/L (3.5-5.1) Chloride Level 106 mmol/L (98-107) Carbon Dioxide Level 25 mmol/L (21-32) Anion Gap 10 (6-14) Blood Urea Nitrogen 14 mg/dL (7-20) Creatinine 1.0 mg/dL (0.6-1.0) Estimated GFR (Cockcroft-Gault) 54.7 BUN/Creatinine Ratio 14 (6-20) Glucose Level 106 mg/dL (70-99) Calcium Level 10.2 mg/dL (8.5-10.1) Magnesium Level 2.1 mg/dL (1.8-2.4) Total Bilirubin 0.9 mg/dL (0.2-1.0) Aspartate Amino Transf (AST/SGOT) 29 U/L (15-37) Alanine Aminotransferase (ALT/SGPT) 17 U/L (14-59) Alkaline Phosphatase 106 U/L (46-116) Creatine Kinase 52 U/L (26-192) Creatine Kinase MB (Mass) 0.9 ng/mL (0.0-3.6) Creatine Kinase MB Relative Index % (0-4) Troponin I Quantitative < 0.017 ng/mL (0.000-0.055) Total Protein 7.4 g/dL (6.4-8.2) Albumin 3.1 g/dL (3.4-5.0) Albumin/Globulin Ratio 0.7 (1.0-1.7) Lipase 188 U/L (73-393) Images Images IMPRESSION: 1. Moderately obstructive calculi in the proximal and distal right ureter, are again seen. The proximal ureteric calculus measures slightly larger but that may just be due to technical difference. Right hydronephrosis appears similar. 2. Splenomegaly and cirrhotic liver morphology is again seen. 3. There may be very mild free pelvic fluid. Assessment/Plan Assessment/Plan 2 obstructive kidney stones on the right measuring 1 cm long and 5 mm distally. Discussed case with physicians Marisa and Denise. We will take patient to OR later today for cysto URS with laser of stones. RN and patient informed. Consents entered Pt to remain NPO until after procedure. Continue IVF, pain control. GRETTA JOLLY MD 10/20/18 1354: UROLOGY CONSULT Assessment/Plan Assessment/Plan agreew above. cysto, right urs w laser/stent today. Given tortuosity of ureter, proximal access might be difficult and staging might be required. gh, uti, injury to urethra, bladder, Uo, ureters, renal unit, stent malfunction and migration,e tc are explained. JEFF NAYLOR APRN Oct 20, 2018 10:27 GRETTA JOLLY MD Oct 20, 2018 13:54
--- NOTE | 2018-10-20 10:51 | RAD ---
KUB, 10/20/2018: HISTORY: Right-sided kidney stone The abdominal gas pattern is unremarkable. There is a 5 mm radiopacity projected over the right paraspinous region at the L4-5 level. This appears to represent the right ureteral calculus seen on yesterday's CT study. It is unchanged in position. Surgical clips are present right upper quadrant compatible with a prior cholecystectomy. Moderate multilevel degenerative change is evident in the lumbar spine. IMPRESSION: Right ureteral calculus at the L4-5 level, unchanged since yesterday's CT exam. Electronically signed by: Jaxson Martinez MD (10/20/2018 10:48 AM) [facility]
[2018-10-20] MEDS ORDERED: fentaNYL PF VIAL 100 MCG/2 ML VIAL IV PRN ×2 (11:00)
[2018-10-20] MEDS ORDERED: IV RINGERS,LACTATED 1000ML 1,000 ML IV SCH (11:00)
[2018-10-20] MEDS ORDERED: HYDROmorphone 2 MG/ML VIAL IV PRN (11:00)
[2018-10-20] MEDS ORDERED: MORPHINE SULFATE 2 MG/ML VIAL. IV PRN ×2 (11:00→20:45)
[2018-10-20] MEDS ORDERED: PROCHLORPERAZINE 10 MG/2 ML VIAL. IV PRN (11:00)
[2018-10-20] MEDS ORDERED: IOHEXOL 300 MG/ML 100ML VIAL. ONE (15:17)
[2018-10-20] MEDS ORDERED: LIDOCAINE 2% JELLY 6ML IN APPLICATOR. ONE (15:18)
[2018-10-20] MEDS ORDERED: CIPROFLOXACIN 400MG PREMIX 200 ML IV PRN (15:30)
[2018-10-20] MEDS ORDERED: SEVOFLURANE 61 TO 120 MINUTES. IH ONE ×2 (15:51→19:07)
[2018-10-20] MEDS ORDERED: PROPOFOL 20 ML IV ONE (15:54)
[2018-10-20] MEDS ORDERED: DEXAMETHASONE SOD PHOS 20 MG/5 ML VIAL. ONE (15:54)
[2018-10-20] MEDS ORDERED: LIDOCAINE 2% PF 5 ML VIAL. ONE (15:54)
[2018-10-20] MEDS ORDERED: ONDANSETRON PF 4 MG/2 ML VIAL. ONE (15:54)
--- NOTE | 2018-10-20 18:57 | PDOC4 ---
OPERATIVE NOTE Date: Date: Oct 20, 2018 Pre-Op Diagnosis: right ureter stone x2. Post-Op Diagnosis: same Procedure Performed: right urs with laser/stent right rpg Surgeon: Anesthesia Type: ga Blood Loss: 1ml Specimans Obtained: stone Findings: right distal stone, removed. unable to get to prox stone tortuous ureter Complications: none evident GRETTA JOLLY MD Oct 20, 2018 18:57
--- NOTE | 2018-10-20 19:41 | OP ---
DATE OF SURGERY: 10/20/2018 PREOPERATIVE DIAGNOSIS: Right ureter stone, proximal and distal. POSTOPERATIVE DIAGNOSIS: Right ureter stone, proximal and distal. PROCEDURE: Right ureteroscopy, laser lithotripsy, right retrograde pyelography interpretation. SURGEON: Jerri Cunningham MD ANESTHESIA: General. CONDITION: Stable. COMPLICATIONS: None. FINDINGS: Right distal ureter stone impacted into the wall, I was able to remove this completely. Mid ureter was widely dilated, but she had tortuosity of the proximal ureter. I was unable to get laser fiber near the stone to pulverize it. A stent was placed in the area of procedure for passive ureteral dilation and pain control. PROCEDURE IN DETAIL: The patient was taken back to the procedure room and placed under general anesthesia in supine position per the protocol. She was prepped and draped in a sterile fashion in dorsal lithotomy position. Timeout was performed. SCDs were attached. IV Cipro was administered. A 21-Persian rigid cystoscope was advanced per urethra into the bladder. Careful systematic review of the bladder visualized no foreign body, stone or tumors. Right ureteral orifice was in an orthotopic position. This was cannulated with a 5-Persian open-ended ureteral catheter. A gentle retrograde pyelography visualized distal ureter filling defect with contrast eventually making past the stone showing a dilated mid ureter. She had ureter filling defect noted in the proximal ureter with proximal ureter dilation and tortuosity. With some difficulty, I managed to place a sensor wire all the way into the upper pole. At this point, the ureter got straightened out. Distal ureteroscopy was performed with semirigid ureteroscope. The stone was pulverized into smaller pieces with a 365 nanometer laser fiber. All fragments were removed and dropped in the bladder were later drained. Dual lumen ureteral catheter was used to place a working wire. A 12/14 ureteral access sheath was used to get easily into the proximal ureter. Flexible ureteroscope was assembled and was inserted in the access sheath. I managed to identify the stone, but I was unable to get very close to it to safely perform laser lithotripsy. Several attempts were performed including dropping into the lumen, but due to amount of ureter edema, I could only visualize only a portion of the stone and could not place laser safely next to it. Achieving futility at this point, I would leave the stent behind for passive ureter dilation in a delayed fashion versus outpatient ESWL. A 6 x 26 stent was placed with loops confirmed in the kidney and the bladder. The patient was awakened and taken to PACU in stable condition. DISPOSITION: We will admit to the floor for pain management, get a KUB in the morning and if the stone is visible, we will do a lithotripsy. Otherwise, plan on second stage ureteroscopy as outpatient in 2 weeks. JERRI CUNNINGHAM MD DR: ASHLEY/larry JOB#: [id number] / [id number]
[2018-10-20] MEDS ORDERED: SIMVASTATIN 10 MG TABLET PO SCH (21:00)
[2018-10-21 00:01] VITALS: BP 129/58
[2018-10-21 03:00] VITALS: BP 131/60
[2018-10-21 07:00] VITALS: BP 128/53
--- NOTE | 2018-10-21 07:49 | RAD ---
KUB, 10/21/2018: HISTORY: Follow-up kidney stone Comparison is made to yesterday's study. A right ureteral stent has been placed in satisfactory position. A right ureteral calculus previously seen at the L4-5 level is no longer visible. 2 tiny radiopacities overlying the stent at the lower pelvic level probably represent phleboliths rather than stone fragments. The abdominal gas pattern is unremarkable. IMPRESSION: 1. A right ureteral stent has been placed in satisfactory position. 2. The previously seen right ureteral calculus is no longer visualized. Electronically signed by: Jaxson Martinez MD (10/21/2018 7:46 AM) [facility]
[2018-10-21] MEDS: CITALOPRAM 10 MG TABLET. PO SCH (08:08)
[2018-10-21] MEDS: FUROSEMIDE 20 MG TABLET PO SCH (08:08)
[2018-10-21] MEDS: METOPROLOL SUCC 24HR ER 25 MG TAB.ER.24H. PO SCH (08:08)
[2018-10-21] MEDS: ALPRAZolam 0.5 MG TABLET PO SCH (08:09)
[2018-10-21] MEDS ORDERED: IBUPROFEN 200 MG TABLET. PO PRN (08:30)
[2018-10-21] MEDS ORDERED: ALPRAZolam 0.5 MG TABLET PO PRN (08:30)
[2018-10-21 11:00] VITALS: BP 121/59
--- NOTE | 2018-10-21 11:03 | NUR ---
SW following. Discussed with RN, pt could possibly discharge today after cleared by urology. RN advised no SW needs at this time.
--- NOTE | 2018-10-21 13:04 | PDOC ---
JEFF NAYLOR DIGITAL CONTENT SPECIALIST 10/21/18 1304: SUBJECTIVE Subjective Doing ok today, wondering when she can go home. OBJECTIVE Objective Physical Exam: General appearance: Alert and Oriented Head: Normocephalic, without obvious abnormality Eyes: conjunctivae/corneas clear. PERRL, EOM's intact. Fundi benign Back: no CVA pain bilaterally Lungs: Regular respirations, non labored breathing. Abdomen: soft, non-tender, obese. No masses, no organomegaly Pelvic: deferred Vital Signs Vital Signs Date Time Temp Pulse Resp B/P (MAP) Pulse Ox O2 Delivery O2 Flow Rate FiO2 10/21/18 11:00 98.1 52 18 121/59 (79) 95 Room Air 98.1 10/21/18 08:18 Room Air 10/21/18 08:08 54 128/53 10/21/18 07:00 98.1 54 18 128/53 (78) 95 Room Air 98.1 10/21/18 03:00 98.5 56 18 131/60 (83) 97 Nasal Cannula 2.0 98.5 10/21/18 00:01 63 129/58 (81) 95 Nasal Cannula 2.0 10/20/18 22:55 97.6 63 18 127/62 (83) 94 Nasal Cannula 2.0 97.6 10/20/18 21:55 60 130/62 (84) 95 Nasal Cannula 2.0 10/20/18 21:25 50 110/62 (78) 99 Nasal Cannula 2.0 10/20/18 21:21 98 Nasal Cannula 2.0 10/20/18 20:51 98 Nasal Cannula 10/20/18 20:50 70 135/62 (86) 98 Nasal Cannula 2.0 10/20/18 20:25 54 137/52 (80) 93 Nasal Cannula 2.0 10/20/18 20:05 65 18 111/65 (80) 93 Nasal Cannula 2.0 10/20/18 20:00 Nasal Cannula 2.0 10/20/18 19:50 97.4 52 18 114/67 (83) 96 Nasal Cannula 2.0 97.4 10/20/18 19:26 58 16 143/69 98 Room Air 10/20/18 19:11 58 16 110/60 100 Simple Mask 15 10/20/18 19:00 Mask 15 10/20/18 18:56 97.7 63 16 97/49 Simple Mask 15 97.7 10/20/18 15:25 98.1 54 20 147/64 95 Room Air 98.1 10/20/18 15:00 98.2 84 16 145/69 (94) 99 Room Air 98.2 I & O Intake and Output 10/21/18 06:59 Intake Total 2050 ml Balance 2050 ml Intake Oral 350 ml IV Total 1700 ml # Voids 2 PHYSICAL EXAM Physical Exam Physical Exam: General appearance: Alert and Oriented Head: Normocephalic, without obvious abnormality Eyes: conjunctivae/corneas clear. PERRL, EOM's intact. Fundi benign Back: no CVA pain bilaterally Lungs: Regular respirations, non labored breathing. Abdomen: soft, non-tender, obese. No masses, no organomegaly Pelvic: deferred ASSESSMENT/PLAN Assessment/Plan POD # [address] Cunningham for kidney stone and doing very well overall. Ok to discharge home whenever medical team is ready. Follow up with Dr. Cunningham in 1-2 weeks for further management ([facility] will call her) Pt has pain medication at home she can take, although Advil was sufficient this am for her pain. Pt given Dr. Cunningham's card. All questions answered. Problems: (1) Kidney stone on right side COMMENT Imaging KUB 10/21/18 IMPRESSION: 1. A right ureteral stent has been placed in satisfactory position. 2. The previously seen right ureteral calculus is no longer visualized. GRETTA CUNNINGHAM MD 10/21/18 1323: ASSESSMENT/PLAN Assessment/Plan managed to remove distal stone, but large stone is behind ureter stenosis/kink. repeat kub on thursday. if not visible, will do 2nd stage URS in 2 weeks once passive ureter dilation is achieved. JEFF NAYLOR APRN Oct 21, 2018 13:04 GRETTA CUNNINGHAM MD Oct 21, 2018 13:23
--- NOTE | 2018-10-21 16:00 | NUR ---
Discharge note: Pt DC to home per private car. IV DC'ed no complications. Reviewed follow up with urology, JOHN next thursday10/25/18, DC medications (no changes from prior home meds). No concerns at this time. Left with belongings.
[2018-10-21] MEDS ORDERED: LACTOBACILLUS RHAMNOSUS GG 1 CAPSULE. PO SCH (21:00)
--- NOTE | 2018-10-21 21:23 | PN ---
DATE: 10/21/2018 SUBJECTIVE: The patient is awake, alert. Has much less pain with placement of stent yesterday. Still has some crampy abdominal pain. OBJECTIVE: VITAL SIGNS: Stable. She is afebrile. GENERAL: She is awake and alert. CHEST: Clear. HEART: Regular. ABDOMEN: Benign. EXTREMITIES: Right flank pain has decreased dramatically to absent. ASSESSMENT: Her Urology was able to get the right distal stone, was unable to get to the proximal stone and a stent was placed. KUB this morning shows the stent in place, but the previously seen right ureteral calculus is no longer visualized and so I am not sure where the 10 mm stone that was not reached is at today on the basis of that x-ray. IMPRESSION: 1. Right renal colic with removal of one stone and second stone remaining, ureteral stent in place. 2. Multiple other problems as described previously. PLAN: Await final Urology disposition with plans to follow. TABITHA RUIZ MD DR: EDGAR/larry JOB#: [id number] / [id number]
--- NOTE | 2018-10-22 10:36 | DS ---
DATE OF DISCHARGE: 10/21/2018 PRIMARY DIAGNOSIS: Right renal colic with two stones, right ureter, 10 mm proximal, 5 mm distal with hydronephrosis. ADDITIONAL DIAGNOSES: Nonalcoholic cirrhosis, atherosclerotic heart disease, hypertension, gastroesophageal reflux disease. CHIEF COMPLAINT AND HISTORY OF PRESENT ILLNESS: This 73-year-old white female was admitted approximately 3 weeks and ongoing renal colic on the right side with imaging having shown the stones as noted above prior, pain was increased and was admitted for pain control and Urological evaluation. SUMMARY OF STAY: The patient was admitted. Pain control was instituted. Urology saw her doing the surgery on the where they were able to remove the right distal stone and unable to get to the proximal stone, I did put in a stent. Imaging on the day of discharge, KUB [facility] did not show the proximal stone any longer and I am not sure as to the etiology of that. Urology felt she could be dismissed with outpatient followup and they will be setting up the same. Her pain was to a manageable level with just ibuprofen at the time of discharge and it was felt she could be dismissed with followup with them in a couple of weeks. DISPOSITION: The patient is discharged to home, regular diet, activity as tolerated, office in 1 week. DISCHARGE MEDICATIONS: Listed on the med rec and have been addressed. TABITHA RUIZ MD DR: EDGAR/larry JOB#: [id number] / [id number]
--- NOTE | 2018-10-26 15:06 | PATHOLOGY ---
[facility] Accession Number: [id number] . 01 Material submitted: . RIGHT URETERAL STONE . 01 Clinical history: . Right kidney stones. . 02 Diagnosis: Right ureteral stone: Consistent with calculus. Specimen is sent out for further processing. Report pending outside analysis. [facility]/10/26/2018 . 02 Electronically signed: . Pablo Chase MD, Pathologist NPI- [id number] . 01 Gross description: . Received fresh labeled "Michelle Arriola, right ureteral stone" is a 0.3 x 0.2 x 0.2 cm moran-yellow calculus. The specimen is forwarded to an outside laboratory for further processing. ([facility]; 10/21/2018) SYC/SYC . 02 Pathologist provided ICD-10: N20.1 . 02 CPT . 056703 Specimen Comment: A courtesy copy of this report has been sent to Specimen Comment: [phone], , . Specimen Comment: Report sent to ,DR RUIZ / DR BABIN Performed at: 01 [facility] [address], [place] [id number] MD Ric Rodriguez MD Phone: [phone] Performed at: 02 [facility] [address], [place] [id number] MD Pablo Chase MD Phone: [phone]
== END 2018-10-21 15:30 | disposition home or self-care (01) | DRG 660 ==
LOC: ER 14:26 → 4 NORTH 15:30
PROVIDERS: ADMIT Family Medicine; ATTEND Family Medicine
PROC: BT1D1ZZ Fluoroscopy of Right Kidney, Ureter and Bladder using Low Osmolar Contrast (ICD-10-PCS; 2018-10-20)
PROC: 0TC68ZZ Extirpation of Matter from Right Ureter, Via Natural or Artificial Opening Endoscopic (ICD-10-PCS; 2018-10-20)
PROC: 0T768DZ Dilation of Right Ureter with Intraluminal Device, Via Natural or Artificial Opening Endoscopic (ICD-10-PCS; principal; 2018-10-20 16:00)
DX: N13.2 Hydronephrosis with renal and ureteral calculous obstruction (principal); Z68.42 Body mass index [BMI] 45.0-49.9, adult; I10 Essential (primary) hypertension; I25.10 Atherosclerotic heart disease of native coronary artery without angina pectoris; Z96.659 Presence of unspecified artificial knee joint; K21.9 Gastro-esophageal reflux disease without esophagitis; I25.2 Old myocardial infarction; Z87.442 Personal history of urinary calculi; Z87.891 Personal history of nicotine dependence; Z90.49 Acquired absence of other specified parts of digestive tract; Z88.0 Allergy status to penicillin; E66.9 Obesity, unspecified
CPT/HCPCS: 36415; 74018; 74176; 76000; 80053; 81001; 82365; 82553; 83690; 83735; 84484; 85025; 85610; 85730; 87086; 88300; 96374; C1769; C1776; C2617; J0744; J1100; J1885; J2001; J2270; J2405; J2704; J7030; Q9967; 99285-25

== ENCOUNTER → 2018-10-25 | Outpatient (CLI) | payer MEDICARE ==
[2018-10-21 11:00] VITALS: BP 121/59
--- NOTE | 2018-10-25 14:44 | RAD ---
Examination: Single frontal view of the abdomen HISTORY: History of right-sided renal stone COMPARISON: 10/21/2018. FINDINGS: The bowel gas pattern appears unremarkable. Right ureteral stent is again identified. Obvious calcification along the right ureteral stent is not evident. 2 small calcifications identified in the left pelvis region probably pelvic phleboliths similar to prior exam. Electronically signed by: Harrison Burrows MD (10/25/2018 2:41 PM) [facility]
== END | disposition home or self-care (01) ==
LOC: RAD 10:15
PROVIDERS: ATTEND Urology
DX: N20.0 Calculus of kidney (principal)
CPT/HCPCS: 74018

== ENCOUNTER → 2018-11-15 | Outpatient (CLI) | payer MEDICARE ==
[2018-10-21 11:00] VITALS: BP 121/59
--- NOTE | 2018-11-15 13:24 | KCIC ---
EXAM: Abdomen, single view. HISTORY: Nephrolithiasis. COMPARISON: 10/25/2018 FINDINGS: A frontal view of the abdomen is obtained. There is a right nephro ureteral stent in expected position. There is a 7 mm density along the proximal course of the stent likely due to the recently demonstrated proximal ureteral stone. There is a 4 mm density overlying the left renal shadow likely due to a nonobstructing stone. There is a nonobstructive bowel gas pattern. There are several pelvic phleboliths. There is colonic diverticulosis. IMPRESSION: 1. Right nephroureteral stent unchanged in position. There is a suspected 7 mm stone along the course of the stent within the proximal right ureter. 2. Suspected stable nonobstructing left renal stone. 3. Nonobstructive bowel gas pattern. Electronically signed by: Ivone Damico MD (11/15/2018 1:20 PM) [facility]
== END | disposition home or self-care (01) ==
LOC: KCIC 10:35
PROVIDERS: ATTEND Urology
DX: K57.30 Diverticulosis of large intestine without perforation or abscess without bleeding (principal); I87.8 Other specified disorders of veins; Z87.442 Personal history of urinary calculi
CPT/HCPCS: 74018

== ENCOUNTER → 2018-12-14 | Outpatient (CLI) | payer MEDICARE ==
--- NOTE | 2018-12-14 16:35 | KCIC ---
AP view of the abdomen Clinical indications: Right-sided ureteral calculus COMPARISON: November 15, 2018. FINDINGS: Since the previous study, a right ureteral stent has been removed. The previously seen 7 mm radiopaque stone of the proximal to mid right ureter seen at the L4 level previously is not evident today. Multiple calcified phleboliths are seen within both sides of the anatomic pelvis. No obstructive bowel pattern is evident. IMPRESSION: Removal of right ureteral stent. Previously seen 7 mm proximal to mid right ureteral stone is not evident today. However, there does appear to be more round calcifications within the right side of the anatomic pelvis. Smaller right ureteral stone fragments may be present. Electronically signed by: Salvador Terrell MD (12/14/2018 4:32 PM) [id number]
== END | disposition home or self-care (01) ==
LOC: KCIC 11:27
PROVIDERS: ATTEND Urology
DX: I87.8 Other specified disorders of veins (principal)
CPT/HCPCS: 74018

== ENCOUNTER → 2018-12-27 | Outpatient (CLI) | payer MEDICARE ==
--- NOTE | 2018-12-27 16:51 | KCIC ---
Exam performed: Renal sonogram. Indication: History of renal calculus Date of Service: 12/27/2018 . Comparison: KUB from 12/14/2018 Technique: Real-time grayscale imaging of the kidneys is performed and images are obtained. Findings: The study somewhat limited due to patient's large body habitus. The right kidney measures 12.2 x 5.1 x 4.7 cm whereas the left kidney measures 12.1 x 4.3 x 4.8 cm. Punctate echogenic probable nonobstructing calculi are seen in both kidneys. There is a suggested 1.2 x 1.4 x 0.9 cm echogenic mass in the posterior right kidney. This is not clearly identified on the CT scan probably due to noncontrast technique. There is no hydronephrosis or perinephric fluid collection. The urinary bladder is decompressed however grossly normal. Impression: Study limited due to patient's large body habitus. Punctate nonobstructing bilateral renal calculi. Echogenic abnormality in the posterior mid right kidney. This was not clearly identified on the prior scan. Angiomyolipoma is possible. If further evaluation is warranted, CT abdomen and pelvis with contrast using renal protocol or alternatively MRI of the kidneys may be obtained . Electronically signed by: Princess Stokes MD (12/27/2018 4:48 PM) [facility]
== END | disposition home or self-care (01) ==
LOC: KCIC US 11:52
PROVIDERS: ATTEND Urology
DX: N20.0 Calculus of kidney (principal); Z87.442 Personal history of urinary calculi
CPT/HCPCS: 76770

== ENCOUNTER 2021-08-28 11:43 | Emergency (ER) | payer MEDICARE ==
[~2021-08-28] VITALS: Ht 158.8 cm; Wt 103.0 kg
[~2021-08-28 11:43] MED LIST changes: +SIMV10TA15 PO; -SIMV10TA3 PO
[2021-08-28 12:40] LABS: BASO % 0 % (0-3); EOS # 0.1 x10^3/uL (0.0-0.7); EOS % 2 % (0-3); HEMATOCRIT 39.5 % (36.0-47.0); HEMOGLOBIN 13.1 g/dL (12.0-15.5); LYMPH # 0.6 x10^3/uL (1.0-4.8); LYMPH % 10 % (24-48); MEAN CORPUSCULAR HEMOGLOBIN 30 pg (25-35); MEAN CORPUSCULAR HGB CONC 33 g/dL (31-37); MEAN CORPUSCULAR VOLUME 91 fL (79-100); MONO # 0.9 x10^3/uL (0.0-1.1); MONO % 14 % (0-9); NEUT # 4.6 x10^3/uL (1.8-7.7); NEUT % 73 % (31-73); PLATELET COUNT 83 x10^3/uL (140-400); RED BLOOD COUNT 4.34 x10^6/uL (3.50-5.40); WHITE BLOOD COUNT 6.2 x10^3/uL (4.0-11.0)
[2021-08-28 12:51] LABS: CALCIUM 9.5 mg/dL (8.5-10.1); CREATININE 0.9 mg/dL (0.6-1.0); GFR 61.2
[2021-08-28 12:51] LABS: BILIRUBIN,URINE NEGATIVE (NEG); COLOR,URINE AMBER; NITRITE,URINE NEGATIVE (NEG); PH,URINE 6.5 (<5.0-8.0); PROTEIN,URINE NEGATIVE (NEG-TRACE)
[2021-08-28 12:56] LABS: BACTERIA,URINE FEW /HPF (0-FEW); CLARITY,URINE HAZY; WBC,URINE >40 /HPF (0-4)
[2021-08-28 12:58] LABS: ALBUMIN 2.9 g/dL (3.4-5.0); ALBUMIN/GLOBULIN RATIO 0.9 (1.0-1.7); TOTAL BILIRUBIN 4.3 mg/dL (0.2-1.0); TOTAL PROTEIN 6.2 g/dL (6.4-8.2)
--- NOTE | 2021-08-28 12:59 | RAD ---
EXAM: Chest, single view. HISTORY: Cough. Covid 19. COMPARISON: None. FINDINGS: A frontal view of the chest is obtained. There is diffuse increased interstitial opacity. T here is lingular and left lower lobe linear atelectasis, infiltrate or scarring. There is a prominent cardiac silhouette. IMPRESSION: Diffuse interstitial infiltrate with lingular and left lower lobe linear atelectasis, inf iltrate or scarring. Electronically signed by: Ivone Damico MD (08/28/2021 12:57 PM) [id number]
[2021-08-28] MEDS ORDERED: IV NORMAL SALINE 1000ML BAG 1,000 ML IV ONE (13:15)
[2021-08-28] MEDS ORDERED: DEXAMETHASONE SOD PHOS 20 MG/5 ML VIAL. IV ONE (13:15)
[2021-08-28] MEDS ORDERED: KETOROLAC 30 MG/ML VIAL. IVP ONE (13:45)
--- NOTE | 2021-08-28 14:00 | PHYS DOC ---
Past Medical History Past Medical History: CAD, Hypertension, Liver Disease, IA Additional Past Medical Histor: Stage 4 non-ETOH Cirrohsis, lymphadema Past Surgical History: Cholecystectomy, Knee Replacement Additional Past Surgical Histo: Right Knee 2006 Smoking Status: Former Smoker Alcohol Use: None Drug Use: None General Adult EDM: Chief Complaint: NAUSEA/VOMITING/DIARRHEA HPI: HPI: Patient is a 76-year-old female that presents today with nausea and vomiting and generalized weakness. Patient states her symptoms started 2 days ago she was diagnosed today with COVID-19 after getting a test yesterday, she states that she is just has some generalized weakness,body aches and pains, she states she is also had some nausea and vomiting as well. She said she has had a 19 pound weight loss over the last 10 days which has not been intentional. She states her nausea vomiting of only been going on for about 2 days patient does have a history of cirrhosis of the liver, she also has a history of coronary artery disease, hypertension and chronic lymphedema of her lower extremities. Review of Systems: Review of Systems: Constitutional: fever or chills. [] Eyes: Denies change in visual acuity. [] HENT: Denies nasal congestion or sore throat. [] Respiratory: shortness of breath. [] Cardiovascular: Denies chest pain or edema. [] GI: nausea, vomiting, denies bloody stools or diarrhea. [] : Denies dysuria. [] Musculoskeletal: Generalized body aches denies back pain or joint pain. [] Integument: Denies rash. [] Neurologic: Denies headache, focal weakness or sensory changes. [] Endocrine: Denies polyuria or polydipsia. [] Lymphatic: Denies swollen glands. [] Psychiatric: Denies depression or anxiety. [] Heart Score: C/O Chest Pain: N/A Risk Factors: Risk Factors: DM, Current or recent (<one month) smoker, HTN, HLP, family history of CAD, obesity. Risk Scores: Score 0 - 3: 2.5% MACE over next 6 weeks - Discharge Home Score 4 - 6: 20.3% MACE over next 6 weeks - Admit for Clinical Observation Score 7 - 10: 72.7% MACE over next 6 weeks - Early Invasive Strategies Current Medications: Current Medications Medications (Trade) Dose Ordered Sig/Susanna Start Time Stop Time Status Last Admin Dose Admin Dexamethasone Sodium Phosphate (Decadron) 10 mg 1X ONCE 08/28/21 13:15 08/28/21 13:16 DC 08/28/21 13:25 10 MG Ketorolac Tromethamine (Toradol 30mg Vial) 15 mg 1X ONCE 08/28/21 13:45 08/28/21 13:46 DC Sodium Chloride 1,000 ml @ 999 mls/hr 1X ONCE 08/28/21 13:15 08/28/21 14:15 08/28/21 13:25 999 MLS/HR Allergies: Allergies: Allergies Coded Allergies Type Severity Reaction Last Updated Verified Penicillins Adverse Reaction Intermediate N/V 08/28/21 Yes morphine Adverse Reaction Intermediate HEADACHE 08/28/21 Yes Physical Exam: PE: Constitutional: Well developed, well nourished, mild distress, non-toxic appearance. [] HENT: Normocephalic, atraumatic, bilateral external ears normal, oropharynx moist, no oral exudates, nose normal. [] Eyes: PERRLA, EOMI, conjunctiva normal, no discharge. [] Neck: Normal range of motion, no tenderness, supple, no stridor. [] Cardiovascular:Heart rate regular rhythm, no murmur [] Lungs & Thorax: Bilateral breath sounds clear to auscultation [] Abdomen: Bowel sounds normal, soft, no tenderness, no masses, no pulsatile masses. [] Skin: Warm, dry, no erythema, no rash. [] Back: No tenderness, no CVA tenderness. [] Extremities: Lymphedema noted in bilateral legs with 4+ edema noted pedal pulses are present 2+ with cap refill less than 2 seconds Neurologic: Alert and oriented X 3, normal motor function, normal sensory function, no focal deficits noted. [] Psychologic: Affect normal, judgement normal, mood normal. [] Current Patient Data: Labs: Laboratory Tests Test 08/28/21 12:02 08/28/21 12:32 White Blood Count 6.2 x10^3/uL (4.0-11.0) Red Blood Count 4.34 x10^6/uL (3.50-5.40) Hemoglobin 13.1 g/dL (12.0-15.5) Hematocrit 39.5 % (36.0-47.0) Mean Corpuscular Volume 91 fL (79-100) Mean Corpuscular Hemoglobin 30 pg (25-35) Mean Corpuscular Hemoglobin Concent 33 g/dL (31-37) Red Cell Distribution Width 16.0 % (11.5-14.5) H Platelet Count 83 x10^3/uL (140-400) L Neutrophils (%) (Auto) 73 % (31-73) Lymphocytes (%) (Auto) 10 % (24-48) L Monocytes (%) (Auto) 14 % (0-9) H Eosinophils (%) (Auto) 2 % (0-3) Basophils (%) (Auto) 0 % (0-3) Neutrophils # (Auto) 4.6 x10^3/uL (1.8-7.7) Lymphocytes # (Auto) 0.6 x10^3/uL (1.0-4.8) L Monocytes # (Auto) 0.9 x10^3/uL (0.0-1.1) Eosinophils # (Auto) 0.1 x10^3/uL (0.0-0.7) Basophils # (Auto) 0.0 x10^3/uL (0.0-0.2) Sodium Level 138 mmol/L (136-145) Potassium Level 4.0 mmol/L (3.5-5.1) Chloride Level 106 mmol/L (98-107) Carbon Dioxide Level 24 mmol/L (21-32) Anion Gap 8 (6-14) Blood Urea Nitrogen 14 mg/dL (7-20) Creatinine 0.9 mg/dL (0.6-1.0) Estimated GFR (Cockcroft-Gault) 61.2 BUN/Creatinine Ratio 16 (6-20) Glucose Level 101 mg/dL (70-99) H Lactic Acid Level 1.5 mmol/L (0.4-2.0) Calcium Level 9.5 mg/dL (8.5-10.1) Total Bilirubin 4.3 mg/dL (0.2-1.0) H Aspartate Amino Transferase (AST) 21 U/L (15-37) Alanine Aminotransferase (ALT) 17 U/L (14-59) Alkaline Phosphatase 94 U/L (46-116) Troponin I High Sensitivity 13 ng/L (4-50) WD-Hhj-W-Type Natriuretic Peptide 256 pg/mL (0-124) H Total Protein 6.2 g/dL (6.4-8.2) L Albumin 2.9 g/dL (3.4-5.0) L Albumin/Globulin Ratio 0.9 (1.0-1.7) L Urine Collection Type U cath Urine Color [place] Urine Clarity Hazy Urine pH 6.5 (<5.0-8.0) Urine Specific [place] 1.015 (1.000-1.030) Urine Protein Negative mg/dL (NEG-TRACE) Urine Glucose (UA) Negative mg/dL (NEG) Urine Ketones (Stick) Negative mg/dL (NEG) Urine Blood Trace (NEG) Urine Nitrite Negative (NEG) Urine Bilirubin Negative (NEG) Urine Urobilinogen Dipstick 4.0 mg/dL (0.2 mg/dL) Urine Leukocyte Esterase Large (NEG) Urine RBC 1-2 /HPF (0-2) Urine WBC >40 /HPF (0-4) Urine Renal Epithelial Cells Mod /LPF Urine Bacteria Few /HPF (0-FEW) Laboratory Tests 08/28/21 12:02 Laboratory Tests 08/28/21 12:02 Vital Signs: Vital Signs Date Time Temp Pulse Resp B/P (MAP) Pulse Ox O2 Delivery O2 Flow Rate FiO2 08/28/21 14:51 64 17 157/77 (103) 96 Room Air 08/28/21 14:21 66 17 155/77 (103) 97 Room Air 08/28/21 13:51 69 22 171/74 (106) 97 Room Air 08/28/21 13:21 64 18 166/73 (104) 95 Room Air 08/28/21 12:51 64 18 164/74 (104) 96 Room Air 08/28/21 12:21 64 17 164/80 (108) 98 Room Air 08/28/21 12:13 98.2 66 15 161/82 (108) 98 Room Air 98.2 08/28/21 11:49 98.2 68 24 165/73 (103) 98 Room Air 98.2 Vital Signs Date Time Temp Pulse Resp B/P (MAP) Pulse Ox O2 Delivery O2 Flow Rate FiO2 08/28/21 12:13 98.2 66 15 161/82 (108) 98 Room Air 98.2 EKG: EKG: [] Radiology/Procedures: Radiology/Procedures: REASON: cough, covid + PROCEDURE: CHEST AP ONLY EXAM: Chest, single view. HISTORY: Cough. Covid 19. COMPARISON: None. FINDINGS: A frontal view of the chest is obtained. There is diffuse increased interstitial opacity. There is lingular and left lower lobe linear atelectasis, infiltrate or scarring. There is a prominent cardiac silhouette. IMPRESSION: Diffuse interstitial infiltrate with lingular and left lower lobe linear atelectasis, infiltrate or scarring. Electronically signed by: Ivone Damico MD (08/28/2021 12:57 PM) [id number] [] Course & Med Decision Making: Course & Med Decision Making Pertinent Labs and Imaging studies reviewed. (See chart for details) [[id number] wanted to review laboratory results with patient told her that she has a urinary tract infection she states yes that was diagnosed 2 days ago she was placed on VANTIN for that she is continue to take those, she was also given Zofran ODT for nausea as well at that time. Did inform patient that other laboratory results and radiological results were were negative at this time for an acute process. Patient's oxygenation levels are 96% at this time. Patient has had no vomiting while in the department since she has been here. Patient is agreeable to going home and treating her symptoms with the medications that have already been prescribed for her, I did inform her that she is unable to keep any of her medications down or continues to vomit even with the Zofran to please return to the emergency department for further evaluation. Patient also informed that if she has increased work of breathing, bluing of her lips or face, or constant chest pain that she is to return for further evaluation. She verbalizes understanding of this and agreeable to the plan of care. Sebastian Disclaimer: Sebastian Disclaimer: This electronic medical record was generated, in whole or in part, using a voice recognition dictation system. Departure Departure Impression: Primary Impression: COVID-19 Additional Impressions: UTI (urinary tract infection) Qualified Codes: N30.01 - Acute cystitis with hematuria Pneumonia Qualified Codes: J18.9 - Pneumonia, unspecified organism Disposition: HOME / SELF CARE / HOMELESS Condition: STABLE Patient Instructions: Pneumonia, Adult, Urinary Tract Infection Additional Instructions: Continue to take your Vantin as directed for urinary tract infection and for pneumonia Take Zofran as directed on your label for nausea, use with caution may cause constipation Take Tylenol and/or ibuprofen as needed for fever and pain relief Cool-mist humidifier to help with coughing Return to the emergency department should you have increased work of breathing, chest pain that is continuous, and bluing of your lips or face Follow-up with your primary care physician for follow-up of your urinary tract infection as directed. You have been tested for or diagnosed with COVID-19. It is an infection caused by a new type of coronavirus. COVID-19 will cause cold-like or mild flu symptoms in most. It can cause more severe symptoms like problems breathing in some. There is no treatment for COVID-19. The body will clear the infection over time. Self-care will help to ease discomfort. Steps to Take: Self-Care Rest as needed. Healthy habits may help you feel better. Steps include: Choose healthy foods including fruits and vegetables. Drink water throughout the day. Get plenty of sleep each night. If you smoke, try to quit. It may ease breathing. Avoid alcohol. Keep Others Healthy The virus can spread to others. Droplets are released every time you sneeze or cough. The droplets can get into the mouth, nose, or eyes of people near you and lead to infection. To lower the chances of spreading COVID-19 to others: Stay at home until your doctor has said it is safe to leave. If you tested positive this will mean staying isolated until both of the following are true: At least 7 days have passed since the start of illness. You are free of fever for at least 72 hours without the use of medicine. During this time: - Avoid public areas, events, or transportation. Do not return to work or school until your doctor has said it is safe to do so. - Call ahead if you need to go to a medical center. Let them know you may have COVID-19. It will help them guide you where to go. They may also ask you to wear a facemask when you come to the office. - If you call for emergency medical services, let them know you may have COVID- 19. While at home: - Try to avoid close contact with others. Stay about 6 feet away. - If possible, spend most of your time in a separate room from others. - Use a face mask if you will be in close contact with others such as sharing a room or vehicle. - Have someone wipe down common surfaces in the home. Use household welder pipe making every day on areas like doorknobs, counters, or sinks. - Cough or sneeze into a tissue. Throw the tissue away right after use. If a tissue is not available, cough or sneeze into your elbow. - Wash your hands often. Wash them after sneezing or coughing. Use soap and water and wash for at least 20 seconds. Alcohol based hand can cleaner can be used if soap and water is not available. - Do not prepare food for others. Avoid sharing personal items like forks, spoons, or toothbrushes. - Avoid close contact with pets while you are sick. There is no evidence of the virus passing to pets. This is a safety step until more is known about this virus. Isolation can be frustrating. Social interaction can help. Keep in touch with friends and family through phone and tech options. You can still interact with others in your home, just keep a safe distance of about 6 feet. Follow-up: Your doctors office will check in with you to see if there are any changes in your health. You may be asked to keep track of symptoms to share with them. They will also let you know when you are clear to be in public again. Problems to Look Out For: Contact your doctor if your recovery is not going as you expect. Get emergency care if you have problems such as: - Trouble breathing - Nonstop chest pain or pressure - Changes in awareness, confusion, or problems waking - Lips or face have bluish color - Worsening of symptoms If you think you have an emergency, call for emergency medical services right away. As taken from [facility] KELLI SANTOS APRN Aug 28, 2021 14:00
[2021-08-28 14:51] VITALS: BP 157/77
--- NOTE | 2021-08-29 07:33 | EKG ---
[facility] [address] [place] [address] Test Date: 2021-08-28 Test Time: 12:37:29 Pat Name: MAIRA JACKSON Department: Room: Gender: F Ham Doctor: : [id number] Requested By: KELLI SANTOS Order Number: [id number] Reading MD: Measurements Intervals [place] Rate: 65 P: 48 MA: 174 QRS: -36 QRSD: 94 T: 11 QT: 422 QTc: 440 Interpretive Statements SINUS RHYTHM ABNORMAL LEFT AXIS DEVIATION LEFT ANTERIOR FASCICULAR BLOCK QRS(T) CONTOUR ABNORMALITY CONSISTENT WITH ANTEROSEPTAL INFARCT AGE UNDETERMINED ABNORMAL ECG RI6.02 No previous ECG available for comparison
== END 2021-08-28 15:03 | disposition home or self-care (01) ==
LOC: ER 11:43
DX: U07.1 COVID-19 (principal); N30.01 Acute cystitis with hematuria; J18.9 Pneumonia, unspecified organism; I25.10 Atherosclerotic heart disease of native coronary artery without angina pectoris; I10 Essential (primary) hypertension; I25.2 Old myocardial infarction; Z88.0 Allergy status to penicillin; Z88.5 Allergy status to narcotic agent
CPT/HCPCS: 36415; 71045; 80053; 81001; 83605; 83880; 84484; 85025; 87040; 87086; 93005; 96361; 96374; 96375; 99285; J1100; J1885; J7030